=== PATIENT | female | born 2000 | race African-American/Black ===

== ENCOUNTER 2019-05-11 16:58 | Emergency (ER) | payer OTHER ==
[~2019-05-11] VITALS: Ht 170.2 cm; Wt 75.8 kg
[~2019-05-11 16:58] MED LIST: TRILEPTAL 300300 MG
[2019-05-11 18:21] LABS: ABSOLUTE NEUTROPHILS 2.8 thou/uL (1.4-8.2); BASOPHILS 0.4 % (0.0-2.0); EOSINOPHILS 1.5 % (0.0-3.0); HEMATOCRIT 43.4 % (37.0-47.0); HEMOGLOBIN 14.1 gm/dL (12.0-15.0); LYMPHOCYTES 42.8 % (24.0-44.0); MCH 26.6 pg (26.0-34.0); MCHC 32.5 g/dL (28.0-37.0); MCV 81.9 fL (80.0-100.0); MONOCYTES 4.9 % (1.0-8.0); PLATELET COUNT 245 thou/uL (150-400); POLYS 50.4 % (36.0-66.0); RDW 13.1 % (10.5-14.5); WBC 5.6 thou/uL (4.0-11.0)
[2019-05-11] MEDS ORDERED: DEPO-PROVE150 MG/1 M IM (18:25)
[2019-05-11 18:27] LABS: CREATININE 0.9 mg/dL (0.6-1.0); POTASSIUM 3.4 mmol/L (3.5-5.1)
[2019-05-11 18:32] LABS: CALCIUM 9.7 mg/dL (8.5-10.1)
[2019-05-11 19:03] VITALS: BP 126/87
--- NOTE | 2019-05-12 08:39 | EKG ---
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
== END 2019-05-11 19:04 | disposition home or self-care (01) ==
LOC: ER 16:58
PROVIDERS: Nurse Practitioner
DX: R42 Dizziness and giddiness (principal); Z88.1 Allergy status to other antibiotic agents; Z88.0 Allergy status to penicillin

== ENCOUNTER → 2020-10-26 | Outpatient (CLI) | payer OTHER ==
[~2020-10-26] MED LIST changes: +DEPO-PROVE150 MG/1 M IM
== END ==
LOC: ULTRA 15:23
PROVIDERS: ATTEND Family Medicine
DX: N63.20 Unspecified lump in the left breast, unspecified quadrant (principal); Z88.0 Allergy status to penicillin; Z88.8 Allergy status to other drugs, medicaments and biological substances

== ENCOUNTER → 2020-11-08 | Outpatient (CLI) | payer OTHER | LOC: BC 12:57 | PROVIDERS: ATTEND Family Medicine | DX: N63.20 Unspecified lump in the left breast, unspecified quadrant (principal) ==